=== PATIENT | male | born 1975 | race Caucasian/White ===

== ENCOUNTER 2018-09-16 18:17 | Inpatient (IN) | payer OTHER ==
[~2018-09-16] VITALS: Ht 180.3 cm; Wt 101.2 kg
[2018-09-16 19:15] VITALS: BP 123/85
[2018-09-16] MEDS ORDERED: FAMO20TA37 PO (19:42)
[2018-09-16] MEDS ORDERED: METO25TA91 PO (19:43)
[2018-09-16] MEDS ORDERED: LIDODERM 5% PATCH TD PRN (20:00)
[2018-09-16] MEDS ORDERED: ENOXAPARIN 40 MG/0.4 ML SQ SCH (20:00)
[2018-09-16] MEDS ORDERED: ONDANSETRON ODT 4 MG PO PRN (20:00)
[2018-09-16] MEDS ORDERED: DOCUSATE 100 MG CAPSULE PO PRN (20:00)
[2018-09-16] MEDS ORDERED: TEMAZEPAM 15 MG CAPSULE PO PRN (20:00)
[2018-09-16] MEDS ORDERED: ACETAMINOPHEN 325 MG TABLET PO PRN (20:00)
[2018-09-16] MEDS ORDERED: LABETALOL 5MG/ML, 20ML IVPush PRN (20:00)
[2018-09-16] MEDS: FAMOTIDINE 20 MG TABLET PO SCH (23:07)
[2018-09-16 23:20] LABS: TROPONIN I < 0.015 ng/mL (0.000-0.045)
[2018-09-17 03:27] VITALS: BP 113/67
[2018-09-17 04:21] LABS: BASOPHILS # (AUTO) 0.04 x10^3/uL (0-0.1); BASOPHILS % (AUTO) 1 % (0-1); EOSINOPHILS # (AUTO) 0.04 x10^3/uL (0-0.4); EOSINOPHILS % (AUTO) 1 % (1-7); LYMPHOCYTES # (AUTO) 2.38 x10^3/uL (1-3.4); LYMPHOCYTES % (AUTO) 29 % (22-44); MD NO; MEAN CORPUSCULAR HEMOGLOBIN 28.1 pg (27.5-34.5); MEAN CORPUSCULAR HGB CONC 33.7 g/dL (33.2-36.2); MEAN CORPUSCULAR VOLUME 83.3 fL (81-97); MEAN PLATELET VOLUME 9.9 fL (7.4-10.4); MONOCYTES # (AUTO) 0.91 x10^3/uL (0.2-0.8); MONOCYTES % (AUTO) 11 % (2-9); NEUTROPHILS # (AUTO) 4.83 x10^3/uL (1.8-6.8); NEUTROPHILS % (AUTO) 59 % (42-75); PLATELET COUNT 218 x10^3/uL (130-400); RED BLOOD COUNT 4.95 x10^6/uL (4.38-5.82); RED CELL DISTRIBUTION WIDTH 13.7 % (9.4-14.8)
[2018-09-17 04:30] LABS: ANION GAP 5 mmol/L (5-15); CALCIUM 8.7 mg/dL (8.5-10.1); CHLORIDE 108 mmol/L (98-107); CREATININE 1.17 mg/dL (0.7-1.3)
[2018-09-17 04:34] LABS: TROPONIN I < 0.015 ng/mL (0.000-0.045)
[2018-09-17 06:32] VITALS: BP 119/65
[2018-09-17] MEDS ORDERED: REGADENOSON 0.4 MG/5 ML SYRINGE ONE (07:47)
[2018-09-17] MEDS ORDERED: METOPROLOL SUCCINATE 25 MG TAB.ER.24H PO SCH (09:00)
[2018-09-17] MEDS: FAMOTIDINE 20 MG TABLET PO SCH (10:30)
[2018-09-17 12:54] VITALS: BP 115/70
[2018-09-17] MEDS ORDERED: SUCR1ORA5 PO (14:04)
== END 2018-09-17 15:00 | disposition home or self-care (01) | DRG 392 ==
LOC: 5SO 19:07 → DCLOUNGE 09-17 14:32
PROVIDERS: ADMIT Hospitalist; ATTEND Hospitalist
DX: K21.9 Gastro-esophageal reflux disease without esophagitis (principal); I42.1 Obstructive hypertrophic cardiomyopathy; Q25.1 Coarctation of aorta
CPT/HCPCS: 36415; 78452; 80048; 84484; 85025; 93017; G0378; J1650; J2785; A9502; C9898

== ENCOUNTER → 2018-11-23 | Outpatient (CLI) | payer OTHER ==
[~2018-11-23] MED LIST: FAMO20TA37 PO; METO25TA91 PO; SUCR1ORA5 PO
[2018-11-23 09:09] LABS: BASOPHILS # (AUTO) 0.05 x10^3/uL (0-0.1); BASOPHILS % (AUTO) 1 % (0-1); EOSINOPHILS # (AUTO) 0.01 x10^3/uL (0-0.4); EOSINOPHILS % (AUTO) 0 % (1-7); LYMPHOCYTES # (AUTO) 1.41 x10^3/uL (1-3.4); LYMPHOCYTES % (AUTO) 18 % (22-44); MD NO; MEAN CORPUSCULAR HEMOGLOBIN 27.6 pg (27.5-34.5); MEAN CORPUSCULAR HGB CONC 33.3 g/dL (33.2-36.2); MEAN CORPUSCULAR VOLUME 82.8 fL (81-97); MEAN PLATELET VOLUME 9.4 fL (7.4-10.4); MONOCYTES # (AUTO) 0.44 x10^3/uL (0.2-0.8); MONOCYTES % (AUTO) 6 % (2-9); NEUTROPHILS # (AUTO) 6.11 x10^3/uL (1.8-6.8); NEUTROPHILS % (AUTO) 76 % (42-75); PLATELET COUNT 231 x10^3/uL (130-400); RED BLOOD COUNT 5.59 x10^6/uL (4.38-5.82); RED CELL DISTRIBUTION WIDTH 13.4 % (9.4-14.8)
[2018-11-23 09:17] LABS: ANION GAP 6 mmol/L (5-15); CALCIUM 9.2 mg/dL (8.5-10.1); CHLORIDE 106 mmol/L (98-107); CREATININE 1.13 mg/dL (0.7-1.3)
== END | disposition home or self-care (01) ==
LOC: STAR 07:59
PROVIDERS: ATTEND Internal Medicine Cardiovascular Disease
DX: Z01.810 Encounter for preprocedural cardiovascular examination (principal); I42.9 Cardiomyopathy, unspecified; R07.9 Chest pain, unspecified
CPT/HCPCS: 36415; 71046; 80048; 85025

== ENCOUNTER 2018-11-30 08:59 | Inpatient (IN) | payer OTHER ==
[2018-11-23 08:47] VITALS: BP 136/76
[~2018-11-30] VITALS: Ht 177.8 cm; Wt 99.0 kg
[2018-11-30] MEDS: SODIUM CHLORIDE 0.9% 1,000 ML IV SCH ×2 (09:35→15:14)
[2018-11-30] MEDS ORDERED: CEFAZOLIN PMX 1GM/50ML 50 ML IVPB ONE (10:00)
[2018-11-30] MEDS ORDERED: FENTANYL PF 100 MCG/2ML ONE (10:02)
[2018-11-30] MEDS ORDERED: MIDAZOLAM 1 MG/ML, 5ML ONE (10:02)
[2018-11-30] MEDS ORDERED: LIDOCAINE 2%, 20ML ONE (10:02)
[2018-11-30] MEDS ORDERED: CEFAZOLIN PMX 1GM/50ML 50 ML ONE (10:02)
[2018-11-30] MEDS ORDERED: CEFAZOLIN 1,000 MG ONE (10:03)
[2018-11-30 11:52] VITALS: BP 125/86
[2018-11-30 12:36] VITALS: BP 120/76
[2018-11-30] MEDS ORDERED: HYDROcodone/APAP 5/325 TABLET PO PRN (13:00)
[2018-11-30] MEDS ORDERED: ACETAMINOPHEN 325 MG TABLET PO PRN (13:00)
[2018-11-30] MEDS ORDERED: HOLD MEDICATION MC PRN (13:00)
[2018-11-30 19:43] VITALS: BP 123/78
[2018-11-30] MEDS: CEFAZOLIN PMX 1GM/50ML 50 ML IVPB SCH (20:07)
[2018-11-30] MEDS: SODIUM CHLORIDE FLUSH 10ML SYR IVF SCH (20:07)
[2018-12-01 00:54] VITALS: BP 114/72
[2018-12-01] MEDS: SODIUM CHLORIDE 0.9% 1,000 ML IV SCH (01:35)
[2018-12-01] MEDS: CEFAZOLIN PMX 1GM/50ML 50 ML IVPB SCH (03:54)
[2018-12-01 05:15] VITALS: BP 142/79
[2018-12-01] MEDS ORDERED: METOPROLOL SUCCINATE 25 MG TAB.ER.24H PO SCH (06:00)
[2018-12-01] MEDS: SODIUM CHLORIDE FLUSH 10ML SYR IVF SCH (08:02)
[2018-12-01 08:22] VITALS: BP 118/76
== END 2018-12-01 10:43 | disposition home or self-care (01) | DRG 227 ==
LOC: CACL 08:59 → 5SO 11:36 → CACL 22:53 → DCLOUNGE 12-01 10:33
PROVIDERS: ADMIT Internal Medicine Cardiovascular Disease; ATTEND Internal Medicine Cardiovascular Disease
PROC: 0JH608Z Insertion of Defibrillator Generator into Chest Subcutaneous Tissue and Fascia, Open Approach (ICD-10-PCS; principal; 2018-11-30)
PROC: 02HK3KZ Insertion of Defibrillator Lead into Right Ventricle, Percutaneous Approach (ICD-10-PCS; 2018-11-30)
PROC: 02H63KZ Insertion of Defibrillator Lead into Right Atrium, Percutaneous Approach (ICD-10-PCS; 2018-11-30)
DX: I42.1 Obstructive hypertrophic cardiomyopathy (principal); I47.2 Ventricular tachycardia; I34.0 Nonrheumatic mitral (valve) insufficiency
CPT/HCPCS: 33249; 71045; 99156; 99157; C1721; C1779; C1892; C1895; G0378; J0690; J2250; J3010; J3490

== ENCOUNTER → 2019-10-11 | Outpatient (CLI) | payer OTHER | END | disposition home or self-care (01) | LOC: CFH 11:03 | PROVIDERS: ATTEND Internal Medicine Cardiovascular Disease | DX: I08.1 Rheumatic disorders of both mitral and tricuspid valves (principal) | CPT/HCPCS: 93306 ==